=== PATIENT | female | born 2005 | race Caucasian/White ===

== ENCOUNTER → 2024-08-29 09:58 | Outpatient (REF) | payer BC, SELFPAY | LOC: RAD 09:58 | PROVIDERS: ATTENDING PHYSICIAN Physician Assistant; FAMILY PHYSICIAN Family Medicine | DX: R07.89 Other chest pain (principal); R06.02 Shortness of breath | CPT/HCPCS: 71046 ==

== ENCOUNTER → 2024-10-17 09:09 | Outpatient (REF) | payer BC, SELFPAY | LOC: RSP 09:09 | PROVIDERS: ATTENDING PHYSICIAN Physician Assistant; FAMILY PHYSICIAN Family Medicine | DX: R06.02 Shortness of breath (principal) | CPT/HCPCS: 88738; 94060; 94727; 94729 ==

== ENCOUNTER → 2024-12-05 07:07 | Outpatient (REF) | payer BC, SELFPAY | LOC: HWRCS 07:07 | PROVIDERS: ATTENDING PHYSICIAN Student in an Organized Health Care Education/Training Program; FAMILY PHYSICIAN Family Medicine | DX: R06.02 Shortness of breath (principal) | CPT/HCPCS: 93225; 93226; 93306 ==